=== PATIENT | female | born 1955 | race Caucasian/White ===

== ENCOUNTER 2022-04-15 11:04 | Emergency (ER) | payer MEDICARE, SELFPAY ==
[2022-04-15 11:14] VITALS: BP 147/79; PULSE 118; RESP 18; TEMP 36.4; O2SAT 97; BMI 25.6
--- NOTE | 2022-04-15 12:01 | ED_ITS ---
HPI - Abdominal Pain General Time Seen by Provider: 12:01 Date Seen: 04/15/22 Chief Complaint: Abdominal Pain Stated Complaint: Pancreatic duct Time Seen by Provider: 04/15/22 12:01 Source: patient and RN notes reviewed Mode of arrival: ambulatory Limitations: no limitations History of Present Illness HPI narrative: Patient is there with concerns of needing hospitalization for pancreatic issues. She developed abdominal pain overnight Monday night, sounds of it was severe in epigastric. There has been some intermittent vomiting. Food does seem to make her symptoms worse. She did eat some old male early this morning. She has been trying to stay on clears. She saw her provider at [facility] on Monday the . They did diagnose her with UTI based on her urinalysis and started Macrobid. Her sodium potassium electrolytes were normal her AST was just very slightly elevated at 43 and repeat today at 44. The rest of her liver panel was normal. She is diabetic and her sugar was 157 on the and 242 today. Her white counts and hemoglobins have been stable. Her lipase was elevated on the at 1:09 a.m. within normal range of 8-78, more elevated today at 178 at followup. Her urine culture dull from the grew urogenital yandel. Is likely a contaminant. She had a CT of her abdomen and pelvis on 04/13/2022. She does bring the report but not the actual images. The CT impression was no acute findings in the abdomen or pelvis. No evidence for bowel obstruction as clinically question. Stable prominent caliber pancreatic duct defined to the head of the pancreas with narrowing of the pancreatic neck. Etiology remains uncertain but benign etiology is favored given stability from 03/03/2020. 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 Recommend nonemergent MRI of the pancreas with MRCP. Diverticulosis without diverticulitis. She has not noted fevers but has had chills. No change in bowels or change in stool color. Is continuing to have severe abdominal pain. She states she is vaccinated for COVID and had no respiratory symptoms. She has had her appendix out, her gallbladder out, hysterectomy. She does not drink alcohol, does not smoke. MD elicited complaint: abdominal pain Related Data Hx Last Menstrual Period: Status post hysterectomy and postmenopausal Patient : No Home Medications Medication Instructions Recorded Confirmed duloxetine 30 mg capsule,delayed 60 mg PO DAILY 04/15/22 04/15/22 release glimepiride 2 mg tablet 2 mg PO BID 04/15/22 04/15/22 losartan 25 mg tablet 25 mg PO DAILY 04/15/22 04/15/22 lovastatin 40 mg tablet 40 mg PO HS 04/15/22 04/15/22 nitrofurantoin 100 mg PO BID 04/15/22 04/15/22 monohydrate/macrocrystals 100 mg capsule Allergies Allergy/AdvReac Type Severity Reaction Status Date / Time No Known Drug Allergies Allergy Verified 04/15/22 11:17 Review of Systems Status of ROS Reports: 10 or more systems reviewed and unremarkable except as noted in History and below PFSH PFS Social History Smoking Status: Never smoker How often do you have a drink containing alcohol: never AUDIT-C Alcohol total score: 0 Non-prescribed substance use: denies use Exam Const: Vital Signs, click to edit/add: Vital Signs - 24 hr 04/15/22 11:14 04/15/22 13:57 04/15/22 14:46 Temperature 97.5 F L 98.1 F 97.9 F Pulse Rate [Pulse Oximeter] 118 H 95 105 H Respiratory Rate 18 18 18 Blood Pressure [Ri ght Upper Arm] 147/79 H 137/95 H 148/79 H Pulse Oximetry 97 97 97 Oxygen Delivery Me thod Room Air Room Air Documenting provider has reviewed patient's vital signs: yes Common normals: no apparent distress, average body habitus, oriented x3, no limitations, healthy appearing and alert General appearance: cooperative, comfortable and well kempt HENMT: Common normals: normocephalic, head/scalp atraumatic, hearing grossly normal bilaterally, external ears normal, nasal mucous membranes and turbinates normal, moist oral mucous membranes, oropharynx normal, dentition normal and gingiva normal Head and scalp: normocephalic and atraumatic Nose: nasal mucous membranes and turbinates normal External ear: external ears normal Eye: Common normals: PERRL, EOMs intact bilaterally, conjunctivae normal and no scleral icterus Conjunctiva: conjunctiva(e) normal Pupil: PERRL Neck & C-Spine: Common normals: full ROM, no lymphadenopathy, supple, no meningeal signs, no JVD and thyroid normal Thyroid: thyroid normal Resp: Common normals: normal respiratory effort, no retractions, no use of accessory muscles and clear to auscultation bilaterally Auscultation: clear to auscultation bilaterally Cardio: Common normals: no JVD, regular rhythm, S1 normal heart sound, S2 normal heart sound, no gallops, no clicks and no murmurs Rate: tachycardic Rhythm: regular rhythm Heart sounds: S1 normal and S2 normal GI: Common normals: Normal to inspection, nondistended, normoactive bowel sounds present, soft to palpation, no hepatosplenomegaly and no masses Palpation: soft, tender Details: epigastric and RUQ and no hepatosplenomegaly : Common normals: no CVA tenderness Bladder/kidney exam: no CVA tenderness Back & Pelvis: Common normals: no CVA tenderness Extremity: Common normals: normal to inspection, full ROM, normal capillary refill, no joint enlargement, no clubbing, cyanosis or edema, no calf tenderness and no pedal edema Neuro: Common normals: oriented x3 Sensorium/orientation: alert Meningeal signs: no meningeal signs Speech: speech normal Psych: Appearance: well kempt Course Course Hospital Course: Will place an IV, I will repeat her amylase and lipase hears we have a baseline. I am ordering MRI abdomen to look at her pancreas/ductal system in the pancreas. I will initiate some IV fluids, 4 mg IV Zofran and 4 mg IV morphine. Have briefly alerted our hospitalist to this patient. We will do a screening COVID in case she does require hospitalization. Reevaluation(s) Reevaluation #1: Patient has required 2 doses of morphine while here for pain control. She does report that it seems to come in episodes of worsening pain but there is always baseline pain. Her MRI of her abdomen is showing pancreatic dilation. I have reviewed this report with her surgeon. She states that the patient does need further workup and will need an endoscopic ultrasound. Unfortunately that is likely going to need to be outpatient. Her amylase and lipase are just very minimally elevated in at this point as she is able to eat some bland and soft foods and is able to drink. She has been given no pain management over the week. I did review with her surgeon if she believed it would be appropriate to send her with some pain management in she fully supported this. I also know evan as she was 1 of my primary care patients. I do think in order to keep her out of the hospital and keep her comfortable while this is worked up, it is important to give her some pain management. I also reviewed with her that we need to consider other things that we could be missing. I do think she should go on a proton pump inhibitor, gastric etiology is still a possibility but less likely than her possible pancreatic/sphincter of OD. Her primary care provider should do an H pylori test on her. [facility] referral and endoscopic ultrasound will have to be obtained through her primary care clinic. Time: 16:09 Consultations Consultation #1: Did speak with our surgeon after seeing this patient Dr. Casanova. She agrees with proceeding with the MR imaging, request for looking at ductal pathology of the pancreas. I have spoken to imaging and they hopefully he can get this done shortly. Time: 12:25 Vital Signs Vital signs: Initial Vital Signs Temperature 97.5 F L 04/15/22 11:14 Temperature Source Temporal Artery Scan 04/15/22 11:14 Pulse Rate 118 H 04/15/22 11:14 Respiratory Rate 18 04/15/22 11:14 Blood Pressure 147/79 H 04/15/22 11:14 Blood Pressure Mean 101 04/15/22 11:14 Blood Pressure Position Supine 04/15/22 11:14 Pulse Oximetry 97 04/15/22 11:14 Oxygen Delivery Method 04/15/22 11:14 Vital Signs Temperature 97.5 F L 04/15/22 11:14 Pulse Rate 118 H 04/15/22 11:14 Respiratory Rate 18 04/15/22 11:14 Blood Pressure 147/79 H 04/15/22 11:14 Pulse Oximetry 97 04/15/22 11:14 Oxygen Delivery Method 04/15/22 11:14 Temperature 97.9 F 04/15/22 14:46 Pulse Rate 105 H 04/15/22 14:46 Respiratory Rate 18 04/15/22 14:46 Blood Pressure 148/79 H 04/15/22 14:46 Pulse Oximetry 97 04/15/22 14:46 Oxygen Delivery Method 04/15/22 14:46 MDM - Abdominal Pain Lab Data Attestation: I reviewed the patient's lab results. Labs: Lab Results 04/15/22 Range/Units 11:32 Amylase 104 H (18-89) U/L Lipase 316 H (23-300) U/L Imaging Data MRI - abdomen: Attestation: I have reviewed the pertinent imaging results. Radiologist's impression: Patient: JUAN DIEGO [employer] Facility:?[facility] Patient ID:?[id number] Site Patient ID:?[id number]. Site :?[id number] Study:?MRI Abdomen MRCP W/O-04/15/2022 2:16:14 PM Ordering Physician:Parris Lamb Final Report: INDICATION: Right upper quadrant abdominal pain. TECHNIQUE: MRCP with heavily T2 weighted 2D and 3D MRCP images. Axial T1 in- and out of phase and T2 weighted images also performed. No gadolinium administered. COMPARISON: CT scan of the abdomen and pelvis dated 24 June 2013. FINDINGS: Geographic fatty infiltration in segments 5 and 8 of the liver. No other focal abnormalities identified in the visualized portions of the liver, spleen, pancreas, adrenal glands, and kidneys. No hydronephrosis. Cholecystectomy. Mild dilation of the common bile duct measuring 1.1 cm, previously 9 mm. No filling defects in the biliary system. Dilation of the main pancreatic duct in the head of the pancreas measuring up to 6 mm, previously 5 mm. Impression : 1. Mild dilation of the common bile duct could be secondary to a previously passed stone. No current choledocholithiasis. 2. Mild dilation of the main pancreatic duct in the head of the pancreas is only slightly increased in size since 2012. 3. Geographic fatty infiltration in segments 5 and 8 of the liver is unchanged. Dictated by Aj Le MD @ 04/15/2022 3:14:36 PM Dictated by: Aj Le MD @ 04/15/2022 15:14:45 (Electronic Signature) Critical Care Time Critical Care Time Critical Care Time: No Discharge Plan Discharge Clinical Impression: Common bile duct dilatation, Status post cholecystectomy, Abdominal pain Condition: Stable Instructions: Pancreatitis (ED), Abdominal Pain (ED) Additional Instructions: Need to stay hydrated and if you cannot drink fluids due to ear symptoms need to be re-evaluated. Diet/food as tolerated. Can take Tylenol baseline for pain management, NSAIDs per bottle directions if needed. Prescription for oxycodone provided to be used minimally, only with severe pain. This can make you constipated, may need to take MiraLax and or senna if using the oxycodone. Narcotics can be addicting as well which is always a concern when we prescribed these. However, feel that it is necessary for you to have some pain management while this is being worked up. You need to contact your primary clinic [facility] and let them know you need a GI referral and endoscopic ultrasound. Did any point you develop fevers, vomiting and are unable to taken orals, have severe worsening of your pain, do need re-evaluation. Activity Level: Activity as Tolerated Prescriptions: No Action losartan 25 mg tablet 25 mg PO DAILY Label Comments: TAKE 1 TABLET BY MOUTH EVERY DAY nitrofurantoin monohyd/m-cryst 100 mg capsule 100 mg PO BID Label Comments: TAKE 1 CAPSULE BY MOUTH TWICE A DAY FOR 7 DAYS lovastatin 40 mg tablet 40 mg PO HS Label Comments: TAKE 1 TABLET BY MOUTH EVERYDAY AT BEDTIME glimepiride 2 mg tablet 2 mg PO BID Label Comments: TAKE 2 TABLETS BY MOUTH TWO TIMES A DAY BEFORE MEALS. duloxetine 30 mg capsule,delayed release(DR/EC) 60 mg PO DAILY Label Comments: TAKE 3 CAPSULES BY MOUTH EVERY DAY Follow Up/Referrals: Provider,Not a Local [Primary Care Provider] - Stand Alone Forms: MyHealth Info Instructions
[2022-04-15] MEDS: 0.9 % SODIUM CHLORIDE 1000 ml 1,000 ML 500 ML IV (12:23)
[2022-04-15] MEDS: ONDANSETRON 2 MG/ML inj 4 MG IVP (12:23)
[2022-04-15] MEDS: MORPHINE 4 MG/ML INJ IVP ×2 (12:24→14:22)
--- NOTE | 2022-04-15 12:25 | CRLHL7_ITS ---
For Patients: As a result of the Century Cures Act, medical imaging exams and procedure reports are released immediately into your electronic medical record. You may view this report before your referring provider. If you have questions, please contact your health care provider. INDICATION: Right upper quadrant abdominal pain. TECHNIQUE: MRCP with heavily T2 weighted 2D and 3D MRCP images. Axial T1 in- and out of phase and T2 weighted images also performed. No gadolinium administered. COMPARISON: CT scan of the abdomen and pelvis dated 24 June 2013. FINDINGS: Geographic fatty infiltration in segments 5 and 8 of the liver. No other focal abnormalities identified in the visualized portions of the liver, spleen, pancreas, adrenal glands, and kidneys. No hydronephrosis. Cholecystectomy. Mild dilation of the common bile duct measuring 1.1 cm, previously 9 mm. No filling defects in the biliary system. Dilation of the main pancreatic duct in the head of the pancreas measuring up to 6 mm, previously 5 mm. Impression : 1. Mild dilation of the common bile duct could be secondary to a previously passed stone. No current choledocholithiasis. 2. Mild dilation of the main pancreatic duct in the head of the pancreas is only slightly increased in size since 2012. 3. Geographic fatty infiltration in segments 5 and 8 of the liver is unchanged. Dictated by Aj Le MD @ 04/15/2022 3:14:36 PM Dictated by: Aj Le MD @ 04/15/2022 15:14:45 (Electronically Signed)
[2022-04-15 12:36] LABS: Amylase* 104 U/L (18-89); Lipase* 316 U/L (23-300)
[2022-04-15 13:00] VITALS: BP 137/95; PULSE 107; O2SAT 93
[2022-04-15 13:57] VITALS: BP 137/95; PULSE 95; RESP 18; TEMP 36.7; O2SAT 97
[2022-04-15 14:46] VITALS: BP 148/79; PULSE 105; RESP 18; TEMP 36.6; O2SAT 97
[2022-04-15 15:00] VITALS: BP 130/63; PULSE 104; O2SAT 95
[2022-04-15 16:00] VITALS: BP 115/90; PULSE 123; O2SAT 94
[2022-04-18 14:43] LABS: SARS PCR* Negative SARS-CoV-2 (Negative)
== END 2022-04-15 16:33 | disposition home or self-care (01) ==
PROVIDERS: Emergency Provider Family Medicine
DX: K80.31 Calculus of bile duct with cholangitis, unspecified, with obstruction (principal)
CPT/HCPCS: 36415; 74181; 82150; 83690; 87635; 96374; 96375; 96376; 99284; 99285; J2270; J2405; J7030

== ENCOUNTER 2022-09-06 11:53 | Emergency (ER) | payer MEDICARE, SELFPAY ==
[2022-09-06] VITALS (29 sets, daily range): BP systolic 121–139; BP diastolic 76–85; PULSE 87–110; RESP 18; TEMP 36.8; O2SAT 91–99; BMI 24.8
--- NOTE | 2022-09-06 13:39 | CRLHL7_ITS ---
For Patients: As a result of the Century Cures Act, medical imaging exams and procedure reports are released immediately into your electronic medical record. You may view this report before your referring provider. If you have questions, please contact your health care provider. INDICATION: Left-sided pain, history of urolithiasis.. TECHNIQUE: CT abdomen and pelvis without contrast. COMPARISON: None. FINDINGS: Limited evaluation of the intra-abdominal solid organs without IV contrast. Lower chest: Unremarkable. Liver: Subtle geographic hypodensity in the right hepatic lobe, may be related to asymmetric hepatic steatosis. Gallbladder and bile ducts: Status post cholecystectomy. Enlargement of the common bile duct likely related to reservoir effect. Pancreas: Fatty atrophy of the body and tail of the pancreas. Spleen: Normal in size. No masses. Adrenal glands: Normal in size. No nodules. Kidneys: Normal in size. No suspicious masses, stones, or hydronephrosis. GI tract: Colonic diverticulosis without evidence of diverticulitis. 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 No bowel obstruction. Normal appendix. Small hiatal hernia. Vasculature: Abdominal aorta is normal in caliber. Lymph nodes: No lymphadenopathy. Peritoneum/Abdominal Wall: Postsurgical changes in the anterior abdominal wall. No sign of mass or infiltration. No free air or significant free fluid. Pelvis: Unremarkable. No pelvic masses. Bones: Unremarkable for age. IMPRESSION: No renal stones identified. No hydronephrosis or hydroureter. No acute intra-abdominal process identified. Colonic diverticulosis without evidence of diverticulitis. Please note that all CT scans at this facility use dose modulation, iterative reconstruction, and/or weight-based dosing when appropriate to reduce radiation dose to as low as reasonably achievable. Dictated by Thierno Panchal MD @ 09/06/2022 4:00:43 PM (Electronically Signed)
[2022-09-06] MEDS: 0.9 % SODIUM CHLORIDE 1000 ml 1,000 ML IV (13:46)
[2022-09-06 13:48] LABS: Basophils Percent Auto 0.2 % (0.0-3.0); Eosinophils Percent Auto 1.1 % (0.0-7.0); Hematocrit 44.7 % (33.0-51.0); Hemoglobin* 15.4 gm/dL (12.0-16.0); Immature Granulocytes Pct Auto 0.2 %; Lymphocytes Percent Auto 21.4 % (20-44); Mean Corpuscular HGB Conc 35 gm/dL (32-36); Mean Corpuscular Hemoglobin 31 pg (26-34); Mean Corpuscular Volume 90 fL (80-100); Monocytes Percent Auto 5.3 % (0.0-11.0); Neutrophils Percent Auto 71.8 % (42.0-72.0); Platelet Count* 303 K/uL (140-440); Red Blood Count 4.98 m/uL (4.00-5.20); White Blood Count* 13.06 K/uL (4.50-11.00)
[2022-09-06] MEDS: ONDANSETRON 2 MG/ML inj 4 MG IVP (13:49)
[2022-09-06 13:50] LABS: Appearance Urine Clear (Clear); Bilirubin Urine 1+ (Negative); Blood Urine Negative (Negative); Color Urine Yellow (Yellow); Glucose Urine Negative (Negative); Ketones Urine Trace (Negative); Leukocyte Esterase Urine Trace (Negative); Nitrite Urine Negative (Negative); Protein Urine 1+ (Negative); Specific Gravity Urine 1.025 (1.000-1.030); Urobilinogen Urine 0.2 (0.2-1.0); pH Urine 5.5 (5.0-8.5)
[2022-09-06] MEDS: HYDROmorphone 0.5 mg/0.5 ml inj IVP (13:50)
[2022-09-06 13:52] LABS: Slide Review Reflex No
[2022-09-06] MEDS: KETOROLAC 15 MG/ML inj IVP (13:54)
[2022-09-06 14:03] LABS: Chloride* 105 mmol/L (96-114)
[2022-09-06 14:04] LABS: Albumin* 4.5 g/dL (3.3-5.0); Potassium* 3.7 mmol/L (3.6-5.1); Sodium* 141 mmol/L (135-149)
[2022-09-06 14:06] LABS: Amylase* 102 U/L (18-89)
[2022-09-06 14:07] LABS: Alkaline Phosphatase* 168 U/L (40-150); Aspartate Amino Transferase* 35 U/L (12-35); Bilirubin Direct* 0.2 mg/dL (0.0-0.5); Bilirubin Total* 0.9 mg/dL (0.1-1.5); Blood Urea Nitrogen* 22 mg/dL (7-30); Calcium* 9.6 mg/dL (8.4-10.6); Carbon Dioxide* 26 mmol/L (20-32); Creatinine* 0.8 mg/dL (0.5-1.5); Est. Creatinine Clearance* 48.45; Estimated Glomerular Filt Rate 80 ml/min; Glucose* 148 mg/dL (60-115); Lipase* 283 U/L (23-300); Total Protein* 7.7 g/dL (6.0-8.3)
[2022-09-06 14:08] LABS: RBC Urine 0-2 (0-2); Squamous Epithelial Cell Urine Few (None-Few)
[2022-09-06 14:08] LABS: Alanine Aminotransferase* 31 U/L (4-35)
[2022-09-06 14:09] LABS: Bacteria Urine Few
[2022-09-06 14:10] LABS: Fine Granular Casts Urine Few
[2022-09-06 14:10] LABS: C Reactive Protein* 0.8 mg/dL (0.5-1.0)
[2022-09-06 14:42] LABS: PCR FLU A Negative PCR FLU A (Negative); PCR FLU B Negative PCR FLU B (Negative); PCR RSV Negative PCR RSV (Negative)
[2022-09-06 14:47] LABS: SARS PCR* Negative SARS-CoV-2 (Negative)
[2022-09-06] MEDS: LORazepam 2 MG/ML inj 0.5 MG IVP (15:09)
--- NOTE | 2022-09-06 15:17 | ED_ITS ---
HPI - Abdominal Pain General Date Seen: 09/06/22 <Juanjose Boggs MD - Last Filed: 09/07/22 20:46> Chief Complaint: Flank Pain <Juanjose Boggs MD - Last Filed: 09/07/22 20:46> Stated Complaint: Kidney Stone Shooting Pain <Juanjose Boggs MD - Last Filed: 09/07/22 20:46> Time Seen by Provider: 09/06/22 13:27 <Juanjose Boggs MD - Last Filed: 09/07/22 20:46> Source: patient and family <Juanjose Boggs MD - Last Filed: 09/07/22 20:46> Mode of arrival: ambulatory <Juanjose Boggs MD - Last Filed: 09/07/22 20:46> Limitations: no limitations <Juanjose Boggs MD - Last Filed: 09/07/22 20:46> History of Present Illness HPI narrative: Patient is the nice lady who presents ambulatory to the emergency room for evaluation of right-sided, flank back pain, and a little bit of lower abdominal discomfort. She has had this since last night, she did try some ibuprofen 600 mg, has also been vomiting and nauseous with this. Thinks this is possibly a kidney stone, she has had similar symptoms in the past, where they had to do instrumentation and put in a stent to have this removed. Denies fevers chills or sweats but she currently is being treated [id number] for a vaginal infection, there was some question whether she has a UTI. <Juanjose Boggs MD - Last Filed: 09/07/22 20:46> MD elicited complaint: abdominal pain and flank pain <Juanjose Boggs MD - Last Filed: 09/07/22 20:46> Pertinent past history: kidney stones <Juanjose Boggs MD - Last Filed: 09/07/22 20:46> Onset (ago): hour(s) <Juanjose Boggs MD - Last Filed: 09/07/22 20:46> Pain Consistency: constant and intermittent <Juanjose Boggs MD - Last Filed: 09/07/22 20:46> Location: RLQ and R flank <Juanjose Boggs MD - Last Filed: 09/07/22 20:46> Severity: severe <Juanjose Boggs MD - Last Filed: 09/07/22 20:46> Quality: aching and fullness <Juanjose Boggs MD - Last Filed: 09/07/22 20:46> Radiation: none <Juanjose Boggs MD - Last Filed: 09/07/22 20:46> Migration to: no migration <Juanjose Boggs MD - Last Filed: 09/07/22 20:46> Exacerbating factors: movement <Juanjose Boggs MD - Last Filed: 09/07/22 20:46> Relieving factors: nothing <Juanjose Boggs MD - Last Filed: 09/07/22 20:46> Associated symptoms: nausea and vomiting <Juanjose Boggs MD - Last Filed: 09/07/22 20:46> Treatments prior to arrival: NSAIDs <Juanjose Boggs MD - Last Filed: 09/07/22 20:46> Related Data Home Medications: Home Medications Medication Instructions Recorded Confirmed duloxetine 30 mg capsule,delayed 60 mg PO DAILY 04/15/22 09/06/22 release glimepiride 2 mg tablet 2 mg PO BID 04/15/22 09/06/22 losartan 25 mg tablet 25 mg PO DAILY 04/15/22 09/06/22 lovastatin 40 mg tablet 40 mg PO HS 04/15/22 09/06/22 Previous Rx's Medication Instructions Recorded fluconazole 150 mg tablet 150 mg PO ONCE #1 tab 09/06/22 fluconazole 150 mg tablet 150 mg PO ONCE #1 tab 09/06/22 (Diflucan) hydromorphone 2 mg tablet 2 mg PO Q6H PRN pain #10 tabs 09/06/22 (Dilaudid) hydromorphone 2 mg tablet 2 mg PO Q6H PRN pain #10 tabs 09/06/22 (Dilaudid) ketorolac 10 mg tablet 10 mg PO TID PRN pain 5 days #15 09/06/22 tabs tamsulosin 0.4 mg capsule 0.4 mg PO DAILY #14 caps 09/06/22 tamsulosin 0.4 mg capsule (Flomax) 0.4 mg PO DAILY #14 caps 09/06/22 <Juanjose Boggs MD - Last Filed: 09/07/22 20:46> Allergies/Adverse Reactions: Allergies Allergy/AdvReac Type Severity Reaction Status Date / Time No Known Drug Allergies Allergy Verified 04/15/22 11:17 <Juanjose Boggs MD - Last Filed: 09/07/22 20:46> Review of Systems Status of ROS Reports: 10 or more systems reviewed and unremarkable except as noted in History and below <Juanjose Boggs MD - Last Filed: 09/07/22 20:46> PFSH PFSH Social History: Social History Smoking Status: Never smoker How often do you have a drink containing alcohol: never AUDIT-C Alcohol total score: 0 Non-prescribed substance use: denies use <Juanjose Boggs MD - Last Filed: 09/07/22 20:46> Exam Narrative: Exam Narrative: Patient is seen in room a, she looks somewhat miserable, nauseous, a little bit pale. Her pupils are equal round reactive to light, her fundi are normal, her neck is supple full range of motion is listed, her TMs are normal, her chest is clear, her heart sounds are normal, her abdomen is soft, there is no guarding, no organomegaly, no tenderness, bowel sounds are quiet, she has a little bit a right-sided lower abdominal flank discomfort. Worse when she bends forward, M worse when she lifts her legs. SLR is are negative bilaterally, hips have full range of motion as do knees, mild edema 1+ is noted of the lower extremities, her pulses are normal, neurologically intact moving her upper and lower extremities normally. <Juanjose Boggs MD - Last Filed: 09/07/22 20:46> Const: Vital Signs, click to edit/add: Vital Signs - 24 hr 09/06/22 12:18 09/06/22 14:01 09/06/22 14:00 Temperature 98.2 F Pulse Rate 96 Pulse Rate [Pulse Oximeter] 110 H Respiratory Rate 18 Blood Pressure 131/85 Blood Pressure [Ri ght Upper Arm] 121/82 Pulse Oximetry 97 95 97 Oxygen Delivery Me thod Room Air 09/06/22 14:01 09/06/22 14:15 09/06/22 14:30 Temperature Pulse Rate 94 99 93 Pulse Rate [Pulse Oximeter] Respiratory Rate Blood Pressure Blood Pressure [Ri ght Upper Arm] Pulse Oximetry 95 93 92 Oxygen Delivery Ut thod 09/06/22 14:45 09/06/22 14:46 09/06/22 15:00 Temperature Pulse Rate 87 92 95 Pulse Rate [Pulse Oximeter] Respiratory Rate Blood Pressure 135/78 Blood Pressure [Ri ght Upper Arm] Pulse Oximetry 96 96 93 Oxygen Delivery Ut thod 09/06/22 15:02 09/06/22 15:15 09/06/22 15:30 Temperature Pulse Rate 89 93 92 Pulse Rate [Pulse Oximeter] Respiratory Rate Blood Pressure 137/81 Blood Pressure [Ri ght Upper Arm] Pulse Oximetry 92 97 [facility] 09[facility] 15:32 09/06/22 15:45 09/06/22 16:00 Temperature Pulse Rate 92 92 93 Pulse Rate [Pulse Oximeter] Respiratory Rate Blood Pressure 139/82 Blood Pressure [Ri ght Upper Arm] Pulse Oximetry 93 94 99 [facility] 09/06/22 16:02 09/06/22 16:03 09/06/22 16:30 Temperature Pulse Rate 94 93 90 Pulse Rate [Pulse Oximeter] Respiratory Rate Blood Pressure 130/78 Blood Pressure [Ri ght Upper Arm] Pulse Oximetry 97 96 98 [facility] 09/06/22 16:32 09/06/22 16:33 09/06/22 16:45 Temperature Pulse Rate 88 91 90 Pulse Rate [Pulse Oximeter] Respiratory Rate Blood Pressure 126/79 Blood Pressure [Ri ght Upper Arm] Pulse Oximetry 95 93 95 [facility] 09/06/22 17:00 09/06/22 17:02 09/06/22 17:15 Temperature Pulse Rate 94 92 90 Pulse Rate [Pulse Oximeter] Respiratory Rate Blood Pressure 133/77 Blood Pressure [Ri ght Upper Arm] Pulse Oximetry 94 92 95 [facility] 09/06/22 17:30 09/06/22 17:32 09/06/22 17:33 Temperature Pulse Rate 99 101 H 97 Pulse Rate [Pulse Oximeter] Respiratory Rate Blood Pressure 129/85 Blood Pressure [Ri ght Upper Arm] Pulse Oximetry 96 92 94 [facility] 09/06/22 17:45 Temperature Pulse Rate 91 Pulse Rate [Pulse Oximeter] Respiratory Rate Blood Pressure Blood Pressure [Ri ght Upper Arm] Pulse Oximetry 94 Oxygen Delivery Me thod <Juanjose Boggs MD - Last Filed: 09/07/22 20:46> Vital Signs, click to edit/add: Vital Signs - 24 hr 09/06/22 12:18 09/06/22 14:01 09/06/22 14:00 Temperature 98.2 F Pulse Rate 96 Pulse Rate [Pulse Oximeter] 110 H Respiratory Rate 18 Blood Pressure 131/85 Blood Pressure [Ri ght Upper Arm] 121/82 Pulse Oximetry 97 95 97 Oxygen Delivery Me thod Room Air 09/06/22 14:01 09/06/22 14:15 09/06/22 14:30 Temperature Pulse Rate 94 99 93 Pulse Rate [Pulse Oximeter] Respiratory Rate Blood Pressure Blood Pressure [Ri ght Upper Arm] Pulse Oximetry 95 93 92 Oxygen Delivery Me thod 09/06/22 14:45 09/06/22 14:46 09/06/22 15:00 Temperature Pulse Rate 87 92 95 Pulse Rate [Pulse Oximeter] Respiratory Rate Blood Pressure 135/78 Blood Pressure [Ri ght Upper Arm] Pulse Oximetry 96 96 93 Oxygen Delivery Me thod 09/06/22 15:02 09/06/22 15:15 09/06/22 15:30 Temperature Pulse Rate 89 93 92 Pulse Rate [Pulse Oximeter] Respiratory Rate Blood Pressure 137/81 Blood Pressure [Ri ght Upper Arm] Pulse Oximetry 92 97 91 Oxygen Delivery Me thod 09/06/22 15:32 09/06/22 15:45 09/06/22 16:00 Temperature Pulse Rate 92 92 93 Pulse Rate [Pulse Oximeter] Respiratory Rate Blood Pressure 139/82 Blood Pressure [Ri ght Upper Arm] Pulse Oximetry 93 94 99 Oxygen Delivery Me thod 09/06/22 16:02 09/06/22 16:03 09/06/22 16:30 Temperature Pulse Rate 94 93 90 Pulse Rate [Pulse Oximeter] Respiratory Rate Blood Pressure 130/78 Blood Pressure [Ri ght Upper Arm] Pulse Oximetry 97 96 98 Oxygen Delivery Me thod 09/06/22 16:32 09/06/22 16:33 09/06/22 16:45 Temperature Pulse Rate 88 91 90 Pulse Rate [Pulse Oximeter] Respiratory Rate Blood Pressure 126/79 Blood Pressure [Ri ght Upper Arm] Pulse Oximetry 95 93 95 Oxygen Delivery Me thod 09/06/22 17:00 09/06/22 17:02 09/06/22 17:15 Temperature Pulse Rate 94 92 90 Pulse Rate [Pulse Oximeter] Respiratory Rate Blood Pressure 133/77 Blood Pressure [Ri ght Upper Arm] Pulse Oximetry 94 92 95 Oxygen Delivery Me thod 09/06/22 17:30 09/06/22 17:32 09/06/22 17:33 Temperature Pulse Rate 99 101 H 97 Pulse Rate [Pulse Oximeter] Respiratory Rate Blood Pressure 129/85 Blood Pressure [Ri ght Upper Arm] Pulse Oximetry 96 92 94 Oxygen Delivery Me thod 09/06/22 17:45 Temperature Pulse Rate 91 Pulse Rate [Pulse Oximeter] Respiratory Rate Blood Pressure Blood Pressure [Ri ght Upper Arm] Pulse Oximetry 94 Oxygen Delivery Me thod <Zainab Wu MD - Last Filed: 09/06/22 18:11> Documenting provider has reviewed patient's vital signs: yes <Juanjose Boggs MD - Last Filed: 09/07/22 20:46> Course Reevaluation(s) Reevaluation #1: Dr. Boggs had actually called the radiologist, did question if there was a stone on the left side. Pari is adamant that this is stone for her, it is consistent with prior stones. We will get her a dose of Flomax. She had spoken with Dr. Boggs just before I went into the room. <Zainab Wu MD - Last Filed: 09/06/22 18:11> Time: 17:30 <Zainab Wu MD - Last Filed: 09/06/22 18:11> Reevaluation #2: She has received her Flomax. We did discussed pain management. Historically, dilaudid has worked best for her. She understands the risk of addiction. I have known Pari for years, she used to be my primary care patient. She has a history of kidney stones, does not have current concerns for addiction at this time. Her daughter is here as well, she has suffered from kidney stones reportedly too. We will give her a dose of oral dilaudid before discharge, she has used this with both of her prior shoulder surgeries successf ully. Will send her with a few tablets of Toradol to use for renal pain as well. She can supplement with some Tylenol if need be. With her oral surgery, she was on amoxicillin and did get it reported yeast infection. She used [id number] medicines and it is mostly gone but she does wonder if I could give her a tablet of Diflucan. I certainly can send that in for her. She agrees to see her primary care provider if this does not take care of her symptoms. <Zainab Wu MD - Last Filed: 09/06/22 18:11> Time: 17:56 <Zainab Wu MD - Last Filed: 09/06/22 18:11> Vital Signs Vital signs: Initial Vital Signs Temperature 98.2 F 09/06/22 12:18 Temperature Source Temporal Artery Scan 09/06/22 12:18 Pulse Rate 110 H 09/06/22 12:18 Pulse Rhythm 09/06/22 12:18 Respiratory Rate 18 09/06/22 12:18 Blood Pressure 121/82 09/06/22 12:18 Blood Pressure Mean 95 09/06/22 12:18 Blood Pressure Position Sitting 09/06/22 12:18 Pulse Oximetry 97 09/06/22 12:18 Oxygen Delivery Method 09/06/22 12:18 Vital Signs Temperature 98.2 F 09/06/22 12:18 Pulse Rate 110 H 09/06/22 12:18 Respiratory Rate 18 09/06/22 12:18 Blood Pressure 121/82 09/06/22 12:18 Pulse Oximetry 97 09/06/22 12:18 Oxygen Delivery Method 09/06/22 12:18 Temperature 98.2 F 09/06/22 12:18 Pulse Rate 95 09/06/22 18:02 Respiratory Rate 18 09/06/22 12:18 Blood Pressure 133/76 09/06/22 18:02 Pulse Oximetry 95 09/06/22 18:02 Oxygen Delivery Method 09/06/22 12:18 <Juanjose Boggs MD - Last Filed: 09/07/22 20:46> Initial Vital Signs Temperature 98.2 F 09/06/22 12:18 Temperature Source Temporal Artery Scan 09/06/22 12:18 Pulse Rate 110 H 09/06/22 12:18 Pulse Rhythm 09/06/22 12:18 Respiratory Rate 18 09/06/22 12:18 Blood Pressure 121/82 09/06/22 12:18 Blood Pressure Mean 95 09/06/22 12:18 Blood Pressure Position Sitting 09/06/22 12:18 Pulse Oximetry 97 09/06/22 12:18 Oxygen Delivery Method 09/06/22 12:18 Vital Signs Temperature 98.2 F 09/06/22 12:18 Pulse Rate 110 H 09/06/22 12:18 Respiratory Rate 18 09/06/22 12:18 Blood Pressure 121/82 09/06/22 12:18 Pulse Oximetry 97 09/06/22 12:18 Oxygen Delivery Method 09/06/22 12:18 Temperature 98.2 F 09/06/22 12:18 Pulse Rate 95 09/06/22 18:02 Respiratory Rate 18 09/06/22 12:18 Blood Pressure 133/76 09/06/22 18:02 Pulse Oximetry 95 09/06/22 18:02 Oxygen Delivery Method 09/06/22 12:18 <Zainab Wu MD - Last Filed: 09/06/22 18:11> MDM - Abdominal Pain MDM Narrative Medical decision making narrative: Life-threatening differential diagnosis considered include: Cauda equina an epidural abscess, other differential diagnosis considered includes sprain, contusion, nerve root entrapment, radiculopathy, muscle spasm, urolithiasis, lumbar fracture, pyelonephritis, appendicitis, biliary colic, as well as other etiologies. The patient denies saddle anesthesia bowel or bladder incontinence or lower extremity weakness, recent weight loss, or history of malignancy. I think it would be reasonable to treat her with IV fluids and pain medication, she will need to be signed over to the oncoming ER physician. <Juanjose Boggs MD - Last Filed: 09/07/22 20:46> Lab Data Attestation: I reviewed the patient's lab results. <Zainab Wu MD - Last Filed: 09/06/22 18:11> Labs: Lab Results 09/06/22 09/06/22 09/06/22 Range/Units 13:38 13:40 13:40 WBC 13.06 H (4.50-11.00) K/uL RBC 4.98 (4.00-5.20) m/uL Hgb 15.4 (12.0-16.0) gm/dL Hct 44.7 (33.0-51.0) % MCV 90 (80-100) fL MCH 31 (26-34) pg MCHC 35 (32-36) gm/dL RDW Coeff of Abelino 12.0 (11.5-15.5) % Plt Count 303 (140-440) K/uL Neut % (Auto) 71.8 (42.0-72.0) % Lymph % (Auto) 21.4 (20-44) % Bailey % (Auto) 5.3 (0.0-11.0) % Eos % (Auto) 1.1 (0.0-7.0) % Baso % (Auto) 0.2 (0.0-3.0) % Neut # (Auto) 9.40 H (1.7-7.0) K/uL Lymph # (Auto) 2.80 (0.90-2.90) K/uL Bailey # (Auto) 0.70 (0.00-0.90) K/UL Eos # (Auto) 0.10 (0.00-0.50) K/uL Baso # (Auto) 0.00 (0.00-0.30) K/uL Sodium 141 (135-149) mmol/L Potassium 3.7 (3.6-5.1) mmol/L Chloride 105 (96-114) mmol/L Carbon Dioxide 26 (20-32) mmol/L BUN 22 (7-30) mg/dL Creatinine 0.8 (0.5-1.5) mg/dL Estimated Creat Clear 48.45 Estimated GFR 80 ml/min Glucose 148 H (60-115) mg/dL Calcium 9.6 (8.4-10.6) mg/dL Total Bilirubin 0.9 (0.1-1.5) mg/dL Direct Bilirubin 0.2 (0.0-0.5) mg/dL AST 35 (12-35) U/L ALT 31 (4-35) U/L Alkaline Phosphatase 168 H (40-150) U/L C-Reactive Protein 0.8 (0.5-1.0) mg/dL Total Protein 7.7 (6.0-8.3) g/dL Albumin 4.5 (3.3-5.0) g/dL Amylase 102 H (18-89) U/L Lipase 283 (23-300) U/L Urine Color Yellow (Yellow) Urine Appearance Clear (Clear) Urine pH 5.5 (5.0-8.5) Ur Specific [place] 1.025 (1.000-1.030) Urine Protein 1+ A (Negative) Urine Glucose (UA) Negative (Negative) Urine Ketones Trace A (Negative) Urine Blood Negative (Negative) Urine Nitrite Negative (Negative) Urine Bilirubin 1+ A (Negative) Urine Urobilinogen 0.2 (0.2-1.0) Ur Leukocyte Esterase Trace A (Negative) Urine RBC 0-2 (0-2) Urine WBC 5-10 A (0-5) Ur Squamous Epith Cells Few (None-Few) Urine Bacteria Few A (None) Fine Granular Casts Few A (None) SARS-CoV-2 (PCR) (Negative) Influenza Type A (PCR) (Negative) Influenza Type B (PCR) (Negative) RSV (PCR) (Negative) 09/06/22 Range/Units 13:55 WBC (4.50-11.00) K/uL RBC (4.00-5.20) m/uL Hgb (12.0-16.0) gm/dL Hct (33.0-51.0) % MCV (80-100) fL MCH (26-34) pg MCHC (32-36) gm/dL RDW Coeff of Abelino (11.5-15.5) % Plt Count (140-440) K/uL Neut % (Auto) (42.0-72.0) % Lymph % (Auto) (20-44) % Bailey % (Auto) (0.0-11.0) % Eos % (Auto) (0.0-7.0) % Baso % (Auto) (0.0-3.0) % Neut # (Auto) (1.7-7.0) K/uL Lymph # (Auto) (0.90-2.90) K/uL Bailey # (Auto) (0.00-0.90) K/UL Eos # (Auto) (0.00-0.50) K/uL Baso # (Auto) (0.00-0.30) K/uL Sodium (135-149) mmol/L Potassium (3.6-5.1) mmol/L Chloride (96-114) mmol/L Carbon Dioxide (20-32) mmol/L BUN (7-30) mg/dL Creatinine (0.5-1.5) mg/dL Estimated Creat Clear Estimated GFR ml/min Glucose (60-115) mg/dL Calcium (8.4-10.6) mg/dL Total Bilirubin (0.1-1.5) mg/dL Direct Bilirubin (0.0-0.5) mg/dL AST (12-35) U/L ALT (4-35) U/L Alkaline Phosphatase (40-150) U/L C-Reactive Protein (0.5-1.0) mg/dL Total Protein (6.0-8.3) g/dL Albumin (3.3-5.0) g/dL Amylase (18-89) U/L Lipase (23-300) U/L Urine Color (Yellow) Urine Appearance (Clear) Urine pH (5.0-8.5) Ur Specific [place] (1.000-1.030) Urine Protein (Negative) Urine Glucose (UA) (Negative) Urine Ketones (Negative) Urine Blood (Negative) Urine Nitrite (Negative) Urine Bilirubin (Negative) Urine Urobilinogen (0.2-1.0) Ur Leukocyte Esterase (Negative) Urine RBC (0-2) Urine WBC (0-5) Ur Squamous Epith Cells (None-Few) Urine Bacteria (None) Fine Granular Casts (None) SARS-CoV-2 (PCR) Negative SARS-CoV-2 (Negative) Influenza Type A (PCR) Negative PCR FLU A (Negative) Influenza Type B (PCR) Negative PCR FLU B (Negative) RSV (PCR) Negative PCR RSV (Negative) <Juanjose Boggs MD - Last Filed: 09/07/22 20:46> Lab Results 09/06/22 09/06/22 09/06/22 Range/Units 13:38 13:40 13:40 WBC 13.06 H (4.50-11.00) K/uL RBC 4.98 (4.00-5.20) m/uL Hgb 15.4 (12.0-16.0) gm/dL Hct 44.7 (33.0-51.0) % MCV 90 (80-100) fL MCH 31 (26-34) pg MCHC 35 (32-36) gm/dL RDW Coeff of Abelino 12.0 (11.5-15.5) % Plt Count 303 (140-440) K/uL Neut % (Auto) 71.8 (42.0-72.0) % Lymph % (Auto) 21.4 (20-44) % Bailey % (Auto) 5.3 (0.0-11.0) % Eos % (Auto) 1.1 (0.0-7.0) % Baso % (Auto) 0.2 (0.0-3.0) % Neut # (Auto) 9.40 H (1.7-7.0) K/uL Lymph # (Auto) 2.80 (0.90-2.90) K/uL Bailey # (Auto) 0.70 (0.00-0.90) K/UL Eos # (Auto) 0.10 (0.00-0.50) K/uL Baso # (Auto) 0.00 (0.00-0.30) K/uL Sodium 141 (135-149) mmol/L Potassium 3.7 (3.6-5.1) mmol/L Chloride 105 (96-114) mmol/L Carbon Dioxide 26 (20-32) mmol/L BUN 22 (7-30) mg/dL Creatinine 0.8 (0.5-1.5) mg/dL Estimated Creat Clear 48.45 Estimated GFR 80 ml/min Glucose 148 H (60-115) mg/dL Calcium 9.6 (8.4-10.6) mg/dL Total Bilirubin 0.9 (0.1-1.5) mg/dL Direct Bilirubin 0.2 (0.0-0.5) mg/dL AST 35 (12-35) U/L ALT 31 (4-35) U/L Alkaline Phosphatase 168 H (40-150) U/L C-Reactive Protein 0.8 (0.5-1.0) mg/dL Total Protein 7.7 (6.0-8.3) g/dL Albumin 4.5 (3.3-5.0) g/dL Amylase 102 H (18-89) U/L Lipase 283 (23-300) U/L Urine Color Yellow (Yellow) Urine Appearance Clear (Clear) Urine pH 5.5 (5.0-8.5) Ur Specific [place] 1.025 (1.000-1.030) Urine Protein 1+ A (Negative) Urine Glucose (UA) Negative (Negative) Urine Ketones Trace A (Negative) Urine Blood Negative (Negative) Urine Nitrite Negative (Negative) Urine Bilirubin 1+ A (Negative) Urine Urobilinogen 0.2 (0.2-1.0) Ur Leukocyte Esterase Trace A (Negative) Urine RBC 0-2 (0-2) Urine WBC 5-10 A (0-5) Ur Squamous Epith Cells Few (None-Few) Urine Bacteria Few A (None) Fine Granular Casts Few A (None) SARS-CoV-2 (PCR) (Negative) Influenza Type A (PCR) (Negative) Influenza Type B (PCR) (Negative) RSV (PCR) (Negative) 09/06/22 Range/Units 13:55 WBC (4.50-11.00) K/uL RBC (4.00-5.20) m/uL Hgb (12.0-16.0) gm/dL Hct (33.0-51.0) % MCV (80-100) fL MCH (26-34) pg MCHC (32-36) gm/dL RDW Coeff of Abelino (11.5-15.5) % Plt Count (140-440) K/uL Neut % (Auto) (42.0-72.0) % Lymph % (Auto) (20-44) % Bailey % (Auto) (0.0-11.0) % Eos % (Auto) (0.0-7.0) % Baso % (Auto) (0.0-3.0) % Neut # (Auto) (1.7-7.0) K/uL Lymph # (Auto) (0.90-2.90) K/uL Bailey # (Auto) (0.00-0.90) K/UL Eos # (Auto) (0.00-0.50) K/uL Baso # (Auto) (0.00-0.30) K/uL Sodium (135-149) mmol/L Potassium (3.6-5.1) mmol/L Chloride (96-114) mmol/L Carbon Dioxide (20-32) mmol/L BUN (7-30) mg/dL Creatinine (0.5-1.5) mg/dL Estimated Creat Clear Estimated GFR ml/min Glucose (60-115) mg/dL Calcium (8.4-10.6) mg/dL Total Bilirubin (0.1-1.5) mg/dL Direct Bilirubin (0.0-0.5) mg/dL AST (12-35) U/L ALT (4-35) U/L Alkaline Phosphatase (40-150) U/L C-Reactive Protein (0.5-1.0) mg/dL Total Protein (6.0-8.3) g/dL Albumin (3.3-5.0) g/dL Amylase (18-89) U/L Lipase (23-300) U/L Urine Color (Yellow) Urine Appearance (Clear) Urine pH (5.0-8.5) Ur Specific [place] (1.000-1.030) Urine Protein (Negative) Urine Glucose (UA) (Negative) Urine Ketones (Negative) Urine Blood (Negative) Urine Nitrite (Negative) Urine Bilirubin (Negative) Urine Urobilinogen (0.2-1.0) Ur Leukocyte Esterase (Negative) Urine RBC (0-2) Urine WBC (0-5) Ur Squamous Epith Cells (None-Few) Urine Bacteria (None) Fine Granular Casts (None) SARS-CoV-2 (PCR) Negative SARS-CoV-2 (Negative) Influenza Type A (PCR) Negative PCR FLU A (Negative) Influenza Type B (PCR) Negative PCR FLU B (Negative) RSV (PCR) Negative PCR RSV (Negative) <Zainab Wu MD - Last Filed: 09/06/22 18:11> Critical Care Time Critical Care Time Critical Care Time: No <Zainab Wu MD - Last Filed: 09/06/22 18:11> Discharge Plan Discharge Clinical Impression: Renal colic <Juanjose Boggs MD - Last Filed: 09/07/22 20:46> Patient Disposition: Home, Self-Care <Juanjose Boggs MD - Last Filed: 09/07/22 20:46> Condition: Stable <Juanjose Boggs MD - Last Filed: 09/07/22 20:46> Instructions: Kidney Stones (ED), Renal Colic (ED) <Juanjose Boggs MD - Last Filed: 09/07/22 20:46> Additional Instructions: Drink fluids for the goal of keeping your urine clear looking, this helps prevent further stones and can help you pass your current stone. Use Toradol baseline for pain, can supplement with Tylenol for less severe pain or the dilaudid as prescribed for more severe pain. Dilaudid is narcotic, review the full drug handout given by the pharmacist please. If you have not passed your kidney stone with in the next 2 weeks, develops worsening symptoms or have a fever with this, need to be re-evaluated. Use the Flomax daily to help dilate the urinary system until you have passed the kidney stone. <Juanjose Boggs MD - Last Filed: 09/07/22 20:46> Activity Level: Activity as Tolerated <Juanjose Boggs MD - Last Filed: 09/07/22 20:46> Activity as Tolerated <Zainab Wu MD - Last Filed: 09/06/22 18:11> Prescriptions: New tamsulosin [Flomax] 0.4 mg capsule 0.4 mg PO DAILY Qty: 14 0RF hydromorphone [Dilaudid] 2 mg tablet 2 mg PO Q6H PRN (Reason: pain) Qty: 10 0RF fluconazole [Diflucan] 150 mg tablet 150 mg PO ONCE Qty: 1 0RF ketorolac 10 mg tablet 10 mg PO TID PRN (Reason: pain) 5 Days Qty: 15 0RF fluconazole 150 mg tablet 150 mg PO ONCE Qty: 1 0RF hydromorphone [Dilaudid] 2 mg tablet 2 mg PO Q6H PRN (Reason: pain) Qty: 10 0RF tamsulosin 0.4 mg capsule 0.4 mg PO DAILY Qty: 14 0RF No Action losartan 25 mg tablet 25 mg PO DAILY Label Comments: TAKE 1 TABLET BY MOUTH EVERY DAY lovastatin 40 mg tablet 40 mg PO HS Label Comments: TAKE 1 TABLET BY MOUTH EVERYDAY AT BEDTIME glimepiride 2 mg tablet 2 mg PO BID Label Comments: TAKE 2 TABLETS BY MOUTH TWO TIMES A DAY BEFORE MEALS. duloxetine 30 mg capsule,delayed release(DR/EC) 60 mg PO DAILY Label Comments: TAKE 3 CAPSULES BY MOUTH EVERY DAY <Juanjose Boggs MD - Last Filed: 09/07/22 20:46> Follow Up/Referrals: Provider,Not a Local [Primary Care Provider] - <Juanjose Boggs MD - Last Filed: 09/07/22 20:46> Stand Alone Forms: [facility] Info Instructions <Juanjose Boggs MD - Last Filed: 09/07/22 20:46>
[2022-09-06] MEDS: TAMSULOSIN HCL 0.4 MG CAPSULE PO (17:45)
[2022-09-06] MEDS: HYDROmorphone 2 MG TABLET PO (18:10)
--- NOTE | 2022-09-08 11:43 | ED.NURSE ---
Called patient to inform of need to be placed on antibiotic. Dr. Boggs ordered Cipro 250 mg orally BID x 10 days and Fluconazole 150 mg tab orally x 1 for yeast infection. Called scripts into [facility] in [place].
== END 2022-09-06 18:24 | disposition home or self-care (01) ==
PROVIDERS: Family Medicine; Emergency Provider Family Medicine
DX: N23 Unspecified renal colic (principal)
CPT/HCPCS: 36415; 74176; 80048; 80076; 81001; 82150; 83690; 85025; 86140; 87086; 87186; 87502; 87634; 87635; 94761; 96374; 96375; 99284; 99285; A9270; J1170; J1885; J2060; J2405; J7030

== ENCOUNTER 2024-04-09 10:52 | Outpatient (CLI) | payer MEDICARE, SELFPAY ==
--- NOTE | 2024-04-09 11:00 | CRLHL7_ITS ---
For Patients: As a result of the Century Cures Act, medical imaging exams and procedure reports are released immediately into your electronic medical record. You may view this report before your referring provider. If you have questions, please contact your health care provider. Indication: Chronic sinus disease Technique: 04/14/2021 Comparison: None available Findings: Frontal sinuses: Clear. Ethmoid sinuses: Clear. Maxillary sinuses: Mild mucosal thickening is present within both maxillary sinuses, increased on the right since the prior study. The maxillary sinus drainage pathways are patent on both sides. Sphenoid sinuses: Mucosal thickening within the posterior left sphenoid sinus again noted although decreased since the prior study. The right sphenoid sinus is clear. The sphenoid ethmoidal recesses are patent bilaterally. Nasal Cavity: Nasal septum is midline. Paradoxical turn of the right middle turbinate. No tabatha bullosa. No polyp. Degenerative changes are present at the right temporomandibular joint. Impression: 1. Mild sinus disease involving both maxillary sinuses and the left sphenoid sinus. 2. Patency of the sinus drainage pathways. Please note that all CT scans at this facility use dose modulation, iterative reconstruction, and/or weight-based dosing when appropriate to reduce radiation dose to as low as reasonably achievable. Dictated by Gary He MD @ 04/09/2024 12:09:41 PM (Electronically Signed)
== END 2024-04-09 10:53 | disposition home or self-care (01) ==
LOC: CT 10:53
PROVIDERS: PCP Nurse Practitioner Adult Health; Visit Provider Otolaryngology
DX: J32.9 Chronic sinusitis, unspecified (principal); J32.0 Chronic maxillary sinusitis
CPT/HCPCS: 70486

== ENCOUNTER 2024-09-26 09:42 | Outpatient (CLI) | payer MEDICARE, SELFPAY ==
--- NOTE | 2024-09-26 10:00 | CRLHL7_ITS ---
For Patients: As a result of the Century Cures Act, medical imaging exams and procedure reports are released immediately into your electronic medical record. You may view this report before your referring provider. If you have questions, please contact your health care provider. XR DXA Bone Mineral Density (BMD) Current height (in): 65.0. Weight (lb): 162.0. Menopause age: 39. Ethnicity: White . 1. Have you had a previous hip or vertebral fracture? No. 2. Have you had any fractures during your adult life which did not result from significant trauma (e.g., auto accident)? No. 3. Did either of your parents have a hip fracture? Yes. 4. Do you smoke? No. 5. Have you ever taken Glucocorticoids? No. 6. Do you have rheumatoid arthritis? No. 7. Do you have secondary osteoporosis? Yes. 8. Do you drink 3 or more alcoholic drinks per day? No. 9. Are you being treated for osteoporosis? No. 10. Have you ever taken any of the following medications: Actonel, Evista, Fosamax, Miacalcin, Reclast, Boniva, Forteo, HRT (i.e. estrogen/hormone therapy), Protelos, Prolia, Vitamin D, Calcium, other ??? please specify. ANSWER: Yes, Vitamin D, calcium. 11. Do you have any of the following medical conditions: Anorexia or bulimia, asthma or emphysema, end stage renal disease, hyperparathyroidism, any seizure disorders, cancer, inflammatory bowel diseases, hysterectomy, other ??? please specify. ANSWER: Yes, any seizure disorders, hysterectomy 12. What was your maximum height (inches)? 65. 13. Do you perform weight bearing exercise regularly? No. 14. Do you regularly consume dairy products? Yes. 15. Do you drink caffeinated beverages? No. If female: 16. At what age did your period start? 14. 17. Are you premenopausal? No. 18. How many full term pregnancies have you had? 2. 19. Have you ever missed your period for more than 6 months in a row (not including or menopause)? No. TECHNIQUE: Bone mineral density study was performed using the [employer]. FINDINGS: The results of the study expressed as bone mineral density (BMD) are as follows: Lumbar spine L1 to L4: BMD: 0.836 g/cm2. T-score: -1.9. Z-score: 0.2. Neck Left: BMD: 0.626 g/cm2. T-score: -2.0 . Z-score: -0.2. Right: BMD: 0.638 g/cm2. T-score: -1.9 . Z-score: -0.1. Total Left: BMD: 0.730 g/cm2. T-score: -1.7 . Z-score: -0.2. Right: BMD: 0.677 g/cm2. T-score: -2.2 . Z-score: -0.6. IMPRESSION: Osteopenia. *Comparison exams done prior to 01/2020 were performed on different unit, [employer]. FRAX 10-year Fracture Risk Major Osteoporotic Fracture: 18 percent Hip Fracture: 5.1 percent Reported Risk Factors: [place] () Neck BMD=0.626, BMI=27.0 Barbi Zavala M.D. Diagnostic Radiologist [email or web address] Transcribed: 1:55 p.m. JR/Dictated by: Barbi Zavala MD @ 09/27/2024 8:01:00 AM (Electronically Signed)
== END 2024-09-26 09:43 | disposition home or self-care (01) ==
LOC: RAD 09:44
PROVIDERS: PCP Nurse Practitioner Adult Health; Visit Provider Nurse Practitioner Adult Health
DX: Z78.0 Asymptomatic menopausal state (principal); M85.89 Other specified disorders of bone density and structure, multiple sites
CPT/HCPCS: 77080

== ENCOUNTER 2025-05-28 10:40 | Emergency (ER) | payer MEDICARE, SELFPAY ==
--- NOTE | 2025-05-28 10:49 | CRLHL7_ITS ---
For Patients: As a result of the Century Cures Act, medical imaging exams and procedure reports are released immediately into your electronic medical record. You may view this report before your referring provider. If you have questions, please contact your health care provider. INDICATION: Fall, hit head, severe headache TECHNIQUE: Head CT without contrast. COMPARISON: CT sinus without contrast 04/09/2024. FINDINGS: CSF spaces: Within normal limits for age. Brain parenchyma and extra-axial spaces: There are nonspecific low attenuation white matter changes consistent with chronic microvascular disease. No sign of mass, hemorrhage, or midline shift. Chronic lacunar infarct versus prominent perivascular space in the right basal ganglia, unchanged. Mild volume loss. Skull base and calvarium: The mastoid air cells are clear. Mild right and trace left maxillary sinus mucosal thickening. The visualized orbits are grossly unremarkable status post bilateral lens replacement mild volume loss. No skull fractures. IMPRESSION: No acute intracranial abnormality. Please note that all CT scans at this facility use dose modulation, iterative reconstruction, and/or weight-based dosing when appropriate to reduce radiation dose to as low as reasonably achievable. Dictated by Kristin Griffith MD @ 05/28/2025 11:36:39 AM (Electronically Signed)
[2025-05-28 10:50] VITALS: BP 131/103; PULSE 94; RESP 16; TEMP 36.6; O2SAT 96
--- NOTE | 2025-05-28 11:07 | CRLHL7_ITS ---
For Patients: As a result of the Century Cures Act, medical imaging exams and procedure reports are released immediately into your electronic medical record. You may view this report before your referring provider. If you have questions, please contact your health care provider. INDICATION: Fall TECHNIQUE: CT cervical spine without contrast. COMPARISON: None. FINDINGS: Vertebrae: There is mild retrolisthesis of C4 on C5 and C5 on C6, and trace anterolisthesis of C2 on C3 and C7 on T1. There are no fractures or suspicious bony lesions. Discs and facet joints: There are degenerative disc changes most severe at C4-C5 and C5-C6. There are multilevel degenerative changes in the facets. Extraspinal findings: Paraspinous soft tissues are unremarkable. IMPRESSION: 1. No acute abnormality of the cervical spine. 2. Multilevel degenerative changes. Please note that all CT scans at this facility use dose modulation, iterative reconstruction, and/or weight-based dosing when appropriate to reduce radiation dose to as low as reasonably achievable. Dictated by Krsitin Griffith MD @ 05/28/2025 11:29:37 AM (Electronically Signed)
--- NOTE | 2025-05-28 11:08 | ED.GENADULT ---
HPI - General Adult General Chief complaint: Fall/Minor Trauma Stated complaint: Fell, hit head, lost consciousness Time Seen by Provider: 05/28/25 10:56 History of Present Illness HPI narrative: 70 year white female insulin-dependent diabetic presents after she was putting the cover on her air conditioner and tripped on the corner of the sidewalk and fell hitting the right side of her frontal forehead. She denies neck pain at this time, was uncertain if she was knocked out or not. She has been awake alert she was able to drive to her daughter's house and then she was brought here to the ER. She is on baby aspirin daily. Patient's medical chart is reviewed. She has history of a remote head injury as well that was more severe than this 1 by by report. She feels a little nauseated and dizzy but does not vomit, no chest pain, back pain pelvic her long bone pain. Related Data Home Medications ?Medication ?Instructions ?Recorded ?Confirmed duloxetine 30 mg capsule,delayed 60 mg PO DAILY 04/15/22 05/28/25 release glimepiride 2 mg tablet 2 mg PO BID 04/15/22 05/28/25 losartan 25 mg tablet 25 mg PO DAILY 04/15/22 05/28/25 lovastatin 40 mg tablet 40 mg PO HS 04/15/22 05/28/25 aspirin 81 mg tablet,delayed 81 mg PO QDAY 01/23/23 05/28/25 release flash glucose sensor (FreeStyle 01/23/23 04/23/24 Chase 2 Sensor kit) insulin glargine 100 unit/mL (3 15 unit subcut QAM 01/23/23 05/28/25 mL) subcutaneous pen (Lantus Solostar U-100 Insulin) insulin lispro 100 unit/mL 1 sliding scale dose subcut 01/23/23 05/28/25 subcutaneous pen (Humalog KwikPen USEASDIRECTD (U-100) Insulin) Allergies Allergy/AdvReac Type Severity Reaction Status Date / Time Cephalosporins Allergy Severe broncho Verified 05/28/25 10:55 spasm clindamycin Allergy Severe uclerated Verified 05/28/25 10:55 her colon doxycycline Allergy Severe paralysis Verified 05/28/25 10:55 hydrocodone Allergy Severe mood Verified 05/28/25 10:55 altering codeine Allergy Mild Nausea Verified 05/28/25 10:55 tramadol Allergy Mild Rash Verified 05/28/25 10:55 Review of Systems Status of ROS: Reports: 6 or more systems reviewed and unremarkable except as noted in History and below [facility] Medical History History of depression (01/03/12) ?Z86.59 - Personal history of other mental and behavioral disorders (ICD-10) Yeast dermatitis ?B37.2 - Candidiasis of skin and nail (ICD-10) Otitis media, purulent, acute, with spontaneous rupture of TM ?H66.019 - Acute suppurative otitis media with spontaneous rupture of ear drum, unspecified ear (ICD-10) Surgical History History of uvulopalatopharyngoplasty (01/03/12) ?Z98.890 - Other specified postprocedural states (ICD-10) History of reduction mammoplasty (01/03/12) ?Z98.890 - Other specified postprocedural states (ICD-10) History of hysterectomy (01/03/12) ?Z90.710 - Acquired absence of both cervix and uterus (ICD-10) History of gastric bypass (05/15/12) ?Z98.84 - Bariatric surgery status (ICD-10) History of appendectomy (01/03/12) ?Z90.49 - Acquired absence of other specified parts of digestive tract (ICD-10) History of abdominoplasty (05/15/12) ?Z98.890 - Other specified postprocedural states (ICD-10) Social History Smoking Status: Never smoker How often do you have a drink containing alcohol: never AUDIT-C Alcohol total score: 0 Non-prescribed substance use: denies use Exam Narrative: Exam Narrative: Objective: Vital signs look within within normal limits other than elevated blood pressure diastolic Alert orient x3, mild red christiana over the right frontal area the forehead but no palpable step-off, pupils react to light extra movements intact no facial asymmetry noted neck supple nontender neurologic in upper lower extremities unremarkable chest back abdomen pelvis unremarkable able to flex extend her hips fully. Const: Vital Signs, click to edit/add: Vital Signs - 24 hr 05/28/25 10:50 Temperature 97.8 F Pulse Rate [Pulse Oximeter] 94 Respiratory Rate 16 Blood Pressure [Ri ght Upper Arm] 131/103 H Pulse Oximetry 96 Oxygen Delivery Me thod Room Air Course Vital Signs Vital signs: Initial Vital Signs Temperature 97.8 F 05/28/25 10:50 Temperature Source Temporal Artery Scan 05/28/25 10:50 Pulse Rate 94 05/28/25 10:50 Respiratory Rate 16 05/28/25 10:50 Blood Pressure 131/103 H 05/28/25 10:50 Blood Pressure Mean 112 H 05/28/25 10:50 Blood Pressure Position Sitting 05/28/25 10:50 Pulse Oximetry 96 05/28/25 10:50 Oxygen Delivery Method Room Air 05/28/25 10:50 Vital Signs Temperature 97.8 F 05/28/25 10:50 Pulse Rate 94 05/28/25 10:50 Respiratory Rate 16 05/28/25 10:50 Blood Pressure 131/103 H 05/28/25 10:50 Pulse Oximetry 96 05/28/25 10:50 Oxygen Delivery Method Room Air 05/28/25 10:50 Temperature 97.8 F 05/28/25 10:50 Pulse Rate 94 05/28/25 10:50 Respiratory Rate 16 05/28/25 10:50 Blood Pressure 131/103 H 05/28/25 10:50 Pulse Oximetry 96 05/28/25 10:50 Oxygen Delivery Method Room Air 05/28/25 10:50 Medical Decision Making MDM Narrative Medical decision making narrative: [age] white female with insulin and diabetic fell by accident, closed head injury. Will check a head and neck CT scan. Will also do an Accu-Chek blood sugar. Will treat accordingly. Daughter is here. She is on aspirin daily. Disposition pending findings above. Addendum: Patient had a basically negative neck CT, had a negative acute changes in her head CT, she does have an old lacunar infarct in the right basal ganglia. Will get an Accu-Chek before she is discharged then rest light activity fluids close head trauma observation q.2 hours for 8 hours. Daughter will stay with her today. Tylenol as needed for discomfort. Follow up with primary care in the next few days certainly sooner change concerns return to the ED. Addendum 12 noon: Patient's blood sugars about 370. She feels she can adjust this and improve it with her insulin adjustment at home. That would be good monitor sugars pop. Would recommend she see her regular doctor next 2-3 days to review her blood sugars in talk about her fall. And head injury. Discharge Plan Discharge Clinical Impression: CHI (closed head injury), Insulin dependent diabetes mellitus Patient Disposition: Home w/ Parent or Adult Condition: Stable Additional Instructions: Light activity for the next week, recommend he stay with family today and they check on your every 2 hours for 8 hours and make sure your pupils are the same, he not vomiting, the know who you are and where you are. May use Tylenol as needed for discomfort. May use ice on the forehead as needed. Recommend recheck with her regular doctor within the next 2-3 days Activity Level: Light activity Discharge Diet: Diabetic Prescriptions: No Action (DME) FreeStyle Chase 2 Sensor Kit See Rx Instructions .Route Rx Instructions: As directed insulin glargine [Lantus Solostar U-100 Insulin] 100 unit/mL (3 mL) insulin pen 15 unit subcut QAM insulin lispro [Humalog KwikPen Insulin] 100 unit/mL insulin pen 1 sliding scale dose subcut USEASDIRECTD aspirin 81 mg tablet,delayed release (DR/EC) 81 mg PO QDAY losartan 25 mg tablet 25 mg PO DAILY Patient Comments: TAKE 1 TABLET BY MOUTH EVERY DAY lovastatin 40 mg tablet 40 mg PO HS Patient Comments: TAKE 1 TABLET BY MOUTH EVERYDAY AT BEDTIME glimepiride 2 mg tablet 2 mg PO BID Patient Comments: TAKE 2 TABLETS BY MOUTH TWO TIMES A DAY BEFORE MEALS. duloxetine 30 mg capsule,delayed release(DR/EC) 60 mg PO DAILY Patient Comments: TAKE 3 CAPSULES BY MOUTH EVERY DAY Follow Up/Referrals: Julianne Urias, TABLET MACHINE OPERATOR [Primary Care Provider, Family Practice] Stand Alone Forms: [employer] Info Instructions
== END 2025-05-28 12:15 | disposition home or self-care (01) ==
PROVIDERS: Emergency Provider Family Medicine; PCP Nurse Practitioner Adult Health
DX: S09.90XA Unspecified injury of head, initial encounter (principal); E11.9 Type 2 diabetes mellitus without complications; Z79.4 Long term (current) use of insulin; W01.10XA Fall on same level from slipping, tripping and stumbling with subsequent striking against unspecified object, initial encounter
CPT/HCPCS: 70450; 72125; 82947; 99284